=== PATIENT | female | born 1945 | race Caucasian/White ===

== ENCOUNTER → 2017-11-29 12:32 | Outpatient (CLI) | payer MEDICARE, MEDICAID, SELFPAY | PROVIDERS: Visit Provider Internal Medicine Adolescent Medicine | DX: R05 Cough (principal) | CPT/HCPCS: 87070; 87077; 87186; 87205 ==

== ENCOUNTER → 2018-08-15 09:24 | Outpatient (CLI) | payer MEDICARE, MEDICAID, SELFPAY ==
--- NOTE | 2018-08-15 09:48 | XR_ITS ---
XR DEXA axial skeleton HISTORY: ITS.REASON: POST MENOPAUSAL ORDERING PHYSICIAN: Jean Paul Abebe MD PATIENT AGE: 73 years COMPARISON: 02/17/2016 FINDINGS: The BMD measured at the Left femoral neck is 0.945 g/cm squared with a T score of -0.7. This is considered Normal according to the World Health Organization criteria. Fracture risk is Low. Treatment is advised. The L1 L4 density has a T score of 2.6 and has increased by 3.2%. The hip density has decreased by 8.3% IMPRESSION: Normal bone density with low fracture risk. Suggest follow-up exam August 2020
== END ==
PROVIDERS: PCP Internal Medicine Adolescent Medicine; Visit Provider Internal Medicine Adolescent Medicine
DX: Z13.820 Encounter for screening for osteoporosis (principal); Z78.0 Asymptomatic menopausal state
CPT/HCPCS: 77080

== ENCOUNTER → 2018-09-12 09:50 | Outpatient (CLI) | payer MEDICARE, MEDICAID, SELFPAY ==
--- NOTE | 2018-09-12 09:55 | MM_ITS ---
MM Dig screening mamm BI w/CAD CAD Screening COMPARISON: Digital mammograms with CAD 03/31/2015 INDICATION: There is no personal or family history of breast cancer. There has been previous biopsy right breast for benign disease. TECHNIQUE: Standard CC and MLO images were obtained. R2 CAD reviewed. FINDINGS: Scattered fibroglandular densities are seen in both breasts. There is a mole marker left breast. There are few benign-appearing microcalcifications right breast. There is a biopsy clip right breast. There is no suspicious lesion and there are no suspicious microcalcifications. IMPRESSION: Fibrofatty parenchyma with no suspicious lesion seen BI-RADS Category: 2 Benign Finding(s) RECOMMENDED FOLLOW-UP: 1YR - 1 YEAR FOLLOW-UP (A letter has been sent to the patient regarding results of the study.)
== END ==
PROVIDERS: PCP Internal Medicine Adolescent Medicine; Visit Provider Internal Medicine Adolescent Medicine
DX: Z12.31 Encounter for screening mammogram for malignant neoplasm of breast (principal)
CPT/HCPCS: 77067

== ENCOUNTER → 2019-04-17 08:59 | Outpatient (CLI) | payer MEDICARE, MEDICAID, SELFPAY ==
--- NOTE | 2019-04-17 09:04 | CA_ITS ---
APPROVED REPORT Flat Sorter Processor: Verónica George RVT Laterality: Bilateral Study Quality: Good Indications: LEFT SIDED FACIAL DROOPING/NUMBNESS, BELLS PALSY Risk Factors Hypertension: Doppler Spectral Velocity Analysis ECA (R) 77.80/8.30 cm/s ECA (L) 48.40/6.00 cm/s dICA (R) 53.10/16.70 cm/s dICA (L) 57.40/16.10 cm/s Yue (R) 66.00/20.50 cm/s Yue (L) 63.10/18.10 cm/s pICA (R) 40.30/9.40 cm/s pICA (L) 70.00/20.60 cm/s dCCA (R) 47.90/10.10 cm/s dCCA (L) 56.30/11.90 cm/s pCCA (R) 71.90/12.80 cm/s pCCA (L) 76.80/12.30 cm/s Vert (R) 29.30/6.90 cm/s Vert (L) 42.70/12.30 cm/s ICA/CCA 1.38 ICA/CCA 1.24 Conclusion Study suggests 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 Study suggests 20-49% stenosis of the left internal cartoid artery. Antegrade flow seen bilateral vertebral arteries. Solid 1cm nodule seen right thyroid. Electronically signed by : Julio Segovia MD 04/17/2019 16:41:42
--- NOTE | 2019-04-17 09:28 | MR_ITS ---
PROCEDURE: MR HEAD/BRAIN WO CON CLINICAL INDICATION: DYSARTHRIA, FACIAL PALSY Left-sided facial palsy COMPARISON: No exams were available for comparison TECHNIQUE: Routine multiplanar multi echo sequences are performed without gadolinium enhancement. FINDINGS: No midline shift, mass effect, intracranial hemorrhage, or hydrocephalus. The cerebellopontine angles, cerebellum, brainstem and mid brain have an unremarkable appearance. No evidence of acute infarction. Some nonspecific periventricular and subcortical T2 white matter hyperintensities which do not demonstrate restricted diffusion or enhancement. No enhancing lesions are evident. The hippocampal gyri are unremarkable and the temporal horns are symmetric. No intra-axial or extra-axial hemorrhage. The pituitary, optic chiasm, corpus callosum, and craniocervical junction have an unremarkable appearance. No mastoid effusion or sinus air-fluid level. IMPRESSION: No acute intracranial findings. Dictated by: Julio Segovia MD 04/18/2019 10:22 Electronically signed by Julio Segovia MD in [place] 04/18/2019 10:22
== END ==
PROVIDERS: PCP Internal Medicine Adolescent Medicine; Visit Provider Internal Medicine Adolescent Medicine
DX: R47.1 Dysarthria and anarthria (principal); G51.0 Bell's palsy
CPT/HCPCS: 70551; 93880

== ENCOUNTER → 2020-04-27 13:17 | Outpatient (POV) | payer MEDICARE, MEDICAID, SELFPAY | DX: Z00.00 Encounter for general adult medical examination without abnormal findings (principal) ==

== ENCOUNTER → 2020-04-27 15:27 | Outpatient (CLI) | payer MEDICARE, MEDICAID, SELFPAY ==
--- NOTE | 2020-04-27 15:34 | MM_ITS ---
PROCEDURE: MM DIG SCREENING MAMM BI W/CAD Digital Breast Tomosynthesis Included CLINICAL INDICATION: SCREENING There is no personal or family history of breast cancer. There has been a previous biopsy right breast for benign disease. COMPARISON: MG DMSB DIG MAMM-SCREEN CHILO from 03/31/2015 CR,MG BONE3 BONE DENSITOMETRY(HIP:LT SPINE from 02/17/2016 MG DIG MAMM-SCREEN CHILO from 09/12/2018 TECHNIQUE: Standard CC and MLO images and 3D Tomosynthesis was obtained. R2 CAD reviewed. FINDINGS: Mild fibroglandular densities are seen in the subareolar regions of both breast and the findings are fairly symmetrical and bilateral. There is a biopsy clip right breast. There are few scattered benign-appearing microcalcifications in the right breast. There is no suspicious lesion and no suspicious microcalcifications. IMPRESSION: Fibrofatty parenchyma with no suspicious lesions seen BI-RAD Category: 2 Benign Finding(s) FOLLOW-UP: 1YR 1 Year Follow-up (A letter has been sent to the patient regarding results of the study.) Dictated by: Dr. Tyler Houser MD 05/04/2020 12:57 Dr. Tyler Houser MD in [place] 05/04/2020 12:57
== END ==
PROVIDERS: PCP Internal Medicine Adolescent Medicine; Visit Provider Internal Medicine Adolescent Medicine
DX: Z12.31 Encounter for screening mammogram for malignant neoplasm of breast (principal)
CPT/HCPCS: 77063; 77067

== ENCOUNTER → 2020-09-23 12:38 | Outpatient (CLI) | payer MEDICARE, MEDICAID, SELFPAY ==
--- NOTE | 2020-09-23 13:37 | CT_ITS ---
PROCEDURE INFORMATION: Exam: CT Chest Without Contrast; Diagnostic Exam date and time: 09/23/2020 1:37 PM Age: 75 years old Clinical indication: Dyspnea; Patient HX: SOA, pulmonary fibrosis TECHNIQUE: Imaging protocol: Diagnostic computed tomography of the chest without contrast. Radiation optimization: All CT scans at this facility use at least one of these dose optimization techniques: automated exposure control; mA and/or kV adjustment per patient size (includes targeted exams where dose is matched to clinical indication); or iterative reconstruction. COMPARISON: CHESTWO CT chest wo con 11/26/2017 8:11 PM FINDINGS: Lungs: Bilateral mid and lower lung zone mild fibrosis, with mild peripheral honeycombing minimal associated bronchiectasis. Pleural spaces: Unremarkable. No pneumothorax. No pleural effusion. Heart: Moderate three-vessel coronary artery atherosclerotic disease. Aorta: No aortic aneurysm. Lymph nodes: Calcified left hilar and subcarinal lymph nodes, compatible with prior granulomatous disease. Spleen: Splenic calcifications, compatible with prior granulomatous disease. Splenic calcifications, compatible with prior granulomatous disease. Bones/joints: Multilevel thoracic spine degenerative disc space narrowing and osteophyte formation. Soft tissues: Normal. IMPRESSION: 1. Bilateral mid and lower lung zone mild fibrosis, with mild peripheral honeycombing minimal associated bronchiectasis. 2. No acute thoracic abnormality.
[2020-09-23 13:53] VITALS: PULSE 70; PULSE 74
== END ==
PROVIDERS: PCP Internal Medicine Adolescent Medicine; Visit Provider Internal Medicine Adolescent Medicine
DX: J84.10 Pulmonary fibrosis, unspecified (principal)
CPT/HCPCS: 71250; 94060; 94640; 94726; 94729

== ENCOUNTER → 2020-11-17 14:56 | Outpatient (CLI) | payer MEDICARE, MEDICAID, SELFPAY ==
[2020-11-17 15:34] LABS: Basophils # 0.4 K/mm3 (0-0.2); Eosinophils # 0.5 K/mm3 (0.0-0.4); Eosinophils % 3.2 % (0.1-12.0); Hematocrit 39.4 % (37.0-47.0); Hemoglobin 13.3 g/dL (12.2-16.2); Lymphocytes # 2.5 K/mm3 (0.7-4.5); Lymphocytes % 16.9 % (10-50); Mean Corpuscular HGB Conc 33.9 g/dL (31.8-35.4); Mean Corpuscular Hemoglobin 29.7 pg (27.0-31.2); Mean Corpuscular Volume 87.8 fl (81-99); Mean Platelet Volume 7.2 fl (7.4-10.4); Monocytes # 0.9 K/mm3 (0.1-1.0); Monocytes % 6.2 % (1.7-9.3); Neutrophils # 10.4 K/mm3 (1.8-7.8); Neutrophils % 70.7 % (37.0-80.0); Platelet Count 339 K/mm3 (142-424); Red Blood Count 4.49 M/mm3 (4.20-5.40); Red Cell Distribution Width 14.2 % (11.5-17.5); White Blood Count 14.7 K/mm3 (4.8-10.8)
[2020-11-17 16:26] LABS: C-Reactive Protein 0.8 mg/L (0-4)
[2020-11-21 23:07] LABS: Immunoglobulin E, Total 30 IU/mL (6-495); M003-IgE Aspergillus fumigatus <0.10 kU/L (Class 0)
== END ==
PROVIDERS: Visit Provider Internal Medicine Pulmonary Disease
DX: R06.00 Dyspnea, unspecified; R06.2 Wheezing
CPT/HCPCS: 36415; 82785; 85025; 86003; 86140

== ENCOUNTER → 2021-01-12 10:00 | Outpatient (CLI) | payer MEDICARE, MEDICAID, SELFPAY ==
[2021-01-12 10:44] LABS: Basophils # 0.6 K/mm3 (0-0.2); Basophils % 3.1 % (0.1-2.0); Eosinophils # 0.5 K/mm3 (0.0-0.4); Eosinophils % 2.6 % (0.1-12.0); Hematocrit 43.2 % (37.0-47.0); Hemoglobin 14.3 g/dL (12.2-16.2); Lymphocytes # 2.9 K/mm3 (0.7-4.5); Lymphocytes % 16.5 % (10-50); Mean Corpuscular HGB Conc 33.1 g/dL (31.8-35.4); Mean Corpuscular Hemoglobin 30.4 pg (27.0-31.2); Mean Platelet Volume 7.6 fl (7.4-10.4); Monocytes % 5.7 % (1.7-9.3); Neutrophils # 12.6 K/mm3 (1.8-7.8); Neutrophils % 72.1 % (37.0-80.0); Platelet Count 336 K/mm3 (142-424); Red Blood Count 4.69 M/mm3 (4.20-5.40); Red Cell Distribution Width 14.4 % (11.5-17.5); White Blood Count 17.5 K/mm3 (4.8-10.8)
[2021-01-12 10:46] LABS: MANUAL DIFFERENTIAL MANUAL DIFFERENTIAL (MANUAL DIFF)
[2021-01-12 11:18] LABS: Alanine Aminotransferase 15 U/L (12-78); Albumin Level 4.4 g/dl (3.5-5.0); Albumin/Globulin Ratio 1.6 (1.1-1.8); Alkaline Phosphatase 68 U/L (38-126); Anion Gap 10.7 mEq/L (5-15); Aspartate Amino Transferase 30 U/L (14-36); Bilirubin,Total 1.3 mg/dl (0.2-1.3); Blood Urea Nitrogen 11 mg/dl (7-17); Calcium 9.5 mg/dl (8.4-10.2); Carbon Dioxide 29 mmol/L (22.0-30.0); Chloride 98 mmol/L (98-107); Chol/HDL Ratio 3.4 (1-3.5); Cholesterol 181 mg/dl (140-200); Estimated Glomerular Filt Rate 82 ml/min (>60); GFR (African American) 99 ML/MIN (>60); Globulin 2.7 g/dL (1.3-3.2); Glucose 105 mg/dl (74-100); HDL Cholesterol 54 mg/dl (40-60); Potassium 4.7 mmoL/L (3.5-5.1); Sodium 133 mmol/L (136-145); Total Protein,Serum 7.1 g/dl (6.3-8.2); Triglycerides 154 mg/dl (30-150); VLDL Cholesterol 31 mg/dL (0-40)
[2021-01-12 11:25] LABS: Eosinophils % 3 % (0-3); Lymphocytes % 32 % (10-50); Monocytes % 4 % (2-9); Neutrophils % 57 % (42-76); Platelet Estimate Normal; RBC Morphology Normal; Total Cells Counted 100
[2021-01-12 11:29] LABS: Direct LDL Cholesterol 95.36 mg/dL (100-129)
[2021-01-12 11:34] LABS: 25-OH Vitamin D, Total 61.4 ng/mL (30-100)
[2021-01-12 11:43] LABS: Free Thyroxine Index 3.2 ug/dL (5.93-13.13); T4 (Thyroxine) 11.1 ug/dl (5.53-11.0); Triiodothryronine (T3) Uptake 29 % (23.5-40.5)
[2021-01-12 11:57] LABS: Thyroid Stimulating Hormone 2.71 uIU/mL (0.465-4.68)
[2021-01-12 12:08] LABS: Vitamin B12 870 pg/mL (239-931)
== END ==
PROVIDERS: Visit Provider Internal Medicine Adolescent Medicine
DX: E03.9 Hypothyroidism, unspecified (principal); E78.5 Hyperlipidemia, unspecified; E53.8 Deficiency of other specified B group vitamins; E55.9 Vitamin D deficiency, unspecified
CPT/HCPCS: 36415; 80053; 80061; 82306; 82607; 84436; 84443; 84479; 85007; 85025

== ENCOUNTER → 2021-03-28 07:05 | Outpatient (CLI) | payer MEDICARE, MEDICAID, SELFPAY ==
--- NOTE | 2021-03-28 07:43 | MR_ITS ---
PROCEDURE: MR HEAD/BRAIN WO CON CLINICAL INDICATION: ACUTE NONINTRACTABLE HEADACHE COMPARISON: MR MR HEAD/BRAIN WO CON from 04/17/2019 TECHNIQUE: Routine multiplanar multi echo sequences are performed without gadolinium enhancement. FINDINGS: No midline shift, mass effect, intracranial hemorrhage, or hydrocephalus. The cerebellopontine angle, midbrain, and brainstem have an unremarkable appearance. A small cystic areas noted in the left cerebellar hemisphere at 4 mm. Could be due to an old small area infarction and has developed since 04/17/2019. This does not demonstrate restricted diffusion and is hypointense on T1 and hyperintense on T2 without surrounding edema. Scattered periventricular and subcortical T2 white matter hyperintensities are noted not significantly changed. There is mild generalized atrophy. Nonspecific dilated perivascular spaces are present within the basal ganglia. The pituitary, optic chiasm, corpus callosum, and craniocervical junction have an unremarkable appearance. No mastoid effusion or sinus air-fluid level. IMPRESSION: No acute intracranial findings. Mild atrophy with minimal periventricular ischemic gliotic changes New 4 mm area of decreased T1 and increased T2 signal in the left cerebellar hemisphere to a which may be due to an old small area of infarction which has developed since the previous exam but does not appear acute. Dictated by: Julio Segovia MD 03/29/2021 07:56 Julio Segovia MD in [place] 03/29/2021 07:56
== END ==
PROVIDERS: PCP Internal Medicine Adolescent Medicine; Visit Provider Internal Medicine Adolescent Medicine
DX: R51.9 Headache, unspecified (principal)
CPT/HCPCS: 70551

== ENCOUNTER 2021-12-24 18:09 | Inpatient (IN) | payer MEDICARE, MEDICAID, SELFPAY ==
[2021-12-24] VITALS (16 sets, daily range): BP systolic 84–182; BP diastolic 51–89; PULSE 104–130; RESP 18–33; TEMP 39.6–40.4; O2SAT 88–97; BMI 27.3; BMI 31.3
--- NOTE | 2021-12-24 18:10 | XR_ITS ---
PROCEDURE INFORMATION: Exam: XR Chest Exam date and time: 12/24/2021 6:28 PM Age: 76 years old Clinical indication: Fever and other: AMS; Additional info: Fever, AMS TECHNIQUE: Imaging protocol: Radiologic exam of the chest. Views: 1 view. COMPARISON: CT CHEST WO CON 09/23/2020 1:43 PM FINDINGS: Lungs: Bilateral chronic lung fibrosis. No superimposed acute airspace process. Pleural spaces: Unremarkable. No pleural effusion. No pneumothorax. Heart/Mediastinum: Unremarkable. No cardiomegaly. Bones/joints: Unremarkable. IMPRESSION: Chronic lung fibrosis.
--- NOTE | 2021-12-24 18:10 | ECG_ITS ---
APPROVED REPORT Exam: Resting ECG HR:117 bpm ECG Measurements Heart Rate 117 AXES RI 121 P 68 QRSd 96 QRS 79 QT 340 T 96 QTc 410 Conclusion SINUS TACHYCARDIA INCOMPLETE RIGHT BUNDLE BRANCH BLOCK [90+ ms QRS DURATION, TERMINAL R IN V1/V2, 40+ ms S IN I/aVL/V4/V5/V6] NONSPECIFIC ST & T-WAVE ABNORMALITY ABNORMAL RHYTHM ECG UNCONFIRMED REPORT Electronically signed by : Jean Paul Abebe MD 12/25/2021 22:37:22
--- NOTE | 2021-12-24 18:10 | CT_ITS ---
PROCEDURE INFORMATION: Exam: CT Head Without Contrast Exam date and time: 12/24/2021 6:21 PM Age: 76 years old Clinical indication: Altered mental status/memory loss and fever; Confusion or disorientation; Additional info: AMS fever TECHNIQUE: Imaging protocol: Computed tomography of the head without contrast. Radiation optimization: All CT scans at this facility use at least one of these dose optimization techniques: automated exposure control; mA and/or kV adjustment per patient size (includes targeted exams where dose is matched to clinical indication); or iterative reconstruction. COMPARISON: MR HEAD/BRAIN WO CON 03/28/2021 7:53 AM FINDINGS: Brain: There is age-appropriate cerebral atrophy. Moderate changes of chronic small vessel ischemia within the cerebral white matter regions bilaterally. No acute infarct or hemorrhage. Cerebral ventricles: No ventriculomegaly. Paranasal sinuses: Visualized sinuses are unremarkable. No fluid levels. Mastoid air cells: Visualized mastoid air cells are well aerated. Bones/joints: Unremarkable. No acute fracture. Soft tissues: Unremarkable. IMPRESSION: No acute intracranial abnormality.
--- NOTE | 2021-12-24 18:17 | HMH.EDGENADL ---
Discharge Plan Disposition Patient Disposition: Xfer Other Condition: Serious Clinical Impressions Clinical Impression: Leukemia, Severe sepsis with acute organ dysfunction, Urinary tract infection, Kidney stone Discharge ED Provider: Pauly Parekh Adult HPI General Chief complaint: Altered Mental Status Stated complaint: AMS Time Seen by Provider: 12/24/21 18:10 Mode of Arrival: EMS Source of Information: EMS Limitations: No Limitations History of Present Illness HPI narrative: 76-year-old female presenting to the emergency department with altered mental status, fever. EMS was called by patient's daughter. She went over to visit her and noted she was quite confused. She was sitting on the couch, wearing normal clothes. She seemed somewhat unresponsive. Breathing fast. When EMS arrived she was confused, febrile. She was able to stand and walk to their stretcher. No known recent illness. On arrival, she is unable to answer questions appropriately. Related Data Home Medications Medication Instructions Recorded Confirmed aspirin 81 mg tablet,delayed 81 mg PO DAILY Supplement 11/26/17 12/24/21 release biotin 1,000 mcg chewable tablet 1,000 mcg PO DAILY Supplement 11/26/17 12/24/21 bisoprolol fumarate 5 mg tablet 5 mg PO DAILY Supplement 11/26/17 12/24/21 cyanocobalamin (vitamin B-12) 5,000 mcg PO DAILY Supplement 11/26/17 12/24/21 5,000 mcg disintegrating tablet levothyroxine 50 mcg tablet 50 mcg PO DAILY Supplement 11/26/17 12/24/21 meloxicam 15 mg tablet 15 mg PO DAILY Pain 11/26/17 12/24/21 nitrofurantoin 100 mg PO DAILY Infection 11/26/17 12/24/21 monohydrate/macrocrystals 100 mg capsule omeprazole 20 mg capsule,delayed 20 mg PO DAILY GERD 11/26/17 12/24/21 release rosuvastatin 20 mg tablet 20 mg PO DAILY Supplement 11/26/17 12/24/21 sennosides 8.6 mg-docusate sodium 1 each PO DAILY Supplement 11/26/17 12/24/21 50 mg tablet gabapentin 300 mg capsule 300 mg PO DAILY Pain 11/17/20 12/24/21 fluticasone 113 mcg-salmeterol 14 1 inh inhalation BID SOA 12/24/21 12/24/21 mcg/actuation breath activated powdr Previous Rx's Medication Instructions Recorded albuterol sulfate 90 mcg/actuation 1 inh inhalation Q6H PRN shortness 01/19/21 aerosol inhaler of breath or wheezing 90 days #8.5 grams Allergies Allergy/AdvReac Type Severity Reaction Status Date / Time ADHESIVES Allergy Intermediate I-RASH Uncoded 01/19/21 13:26 (BANDAIDS) PFSH PFSH Social History Smoking Status: Never smoker alcohol intake: never substance use type: denies use current occupational status: retired Travel in the last 8 weeks: None ROS Obtained: Yes unobtainable due to mental status Physical Exam General General appearance: alert and in no apparent distress Head Head exam: atraumatic and normocephalic Eye Eye exam: Present normal appearance; Absent conjunctival redness ENT ENT exam: Present normal exam Neck Neck exam: Present normal inspection; Absent meningismus Respiratory Respiratory exam: Present normal lung sounds bilaterally and other (Elevated respiratory rate); Absent wheezes or stridor Cardiovascular Cardiovascular exam: Present normal rhythm and tachycardia Abdominal Exam Abdominal exam: Present soft; Absent distention or tenderness Extremities Exam Extremities exam: Present normal inspection and full ROM; Absent tenderness or edema Neurological Exam Neurological exam: Present alert and other (Moving all 4 extremities spontaneously.); Absent oriented X3 (Not speaking in words.) Psychiatric Psychiatric exam: Present normal affect and normal mood Skin Skin exam: Present warm, pallor and other (Hot to the touch) Medical Decision Making Medical Records Medical records reviewed: Yes I reviewed the patient's medical records. Jony Inquiry Pt receiving controlled substance: No Vital Signs: 12/24/21 18:10 12/24/21 19:17 12/24/21 19:00 Temperature 104.7 F H 10
--- NOTE | 2021-12-24 18:22 | PC.NURSE ---
RESPIRATORY CONTACTED ABOUT [facility]
[2021-12-24 18:25] LABS: Microscopic, Urine URINE MICROSCOPIC (MICROSCOPIC)
--- NOTE | 2021-12-24 18:26 | PC.NURSE ---
Pt to RAD for SCANS
[2021-12-24 18:27] LABS: Appearance,Urine SL CLOUDY (Clear); Bilirubin,Urine Negative (Negative); Blood, Urine 2+ (Negative); Color,Urine YELLOW (Yellow); Glucose,Urine (UA) Negative (Negative); Ketones,Urine Negative (Negative); Leukocyte Esterase,Urine 2+ (Negative); Nitrate,Urine POSITIVE (Negative); Protein,Urine TRACE (Negative); Urobilinogen,Urine 0.2 EU/dl (0.2)
[2021-12-24 18:27] LABS: Coronavirus 19, PCR Not Detected (NotDetected); Influenza A, PCR Not Detected (NotDetected); Influenza B, PCR Not Detected (NotDetected)
--- NOTE | 2021-12-24 18:29 | PC.NURSE ---
family present to the bedside
[2021-12-24 18:32] LABS: Chloride 103 mmol/L (98-107)
[2021-12-24 18:33] LABS: Potassium 3.4 mmoL/L (3.5-5.1); Sodium 137 mmol/L (136-145)
--- NOTE | 2021-12-24 18:34 | PC.NURSE ---
this nurse to the bedside to speak with family about POC
[2021-12-24 18:35] LABS: Alanine Aminotransferase 22 U/L (12-78); Albumin Level 4.2 g/dl (3.5-5.0); Alkaline Phosphatase 179 U/L (38-126); Aspartate Amino Transferase 55 U/L (14-36); Bilirubin,Total 1.4 mg/dl (0.2-1.3); Blood Urea Nitrogen 22 mg/dl (7-17); Creatinine Clearance Estimated 27 mL/min (50-200); Estimated Glomerular Filt Rate 19 ml/min (>60); GFR (African American) 23 ML/MIN (>60); Lipase 92 U/L (23-300)
[2021-12-24 18:36] LABS: Albumin/Globulin Ratio 1.2 (1.1-1.8); Anion Gap 18.4 mEq/L (5-15); Calcium 8.4 mg/dl (8.4-10.2); Carbon Dioxide 19 mmol/L (22.0-30.0); Globulin 3.4 g/dL (1.3-3.2); Glucose 97 mg/dl (74-100); Total Protein,Serum 7.6 g/dl (6.3-8.2)
[2021-12-24 18:42] LABS: VBG Base Excess -11.6 mmol/L (-2.4-2.3); VBG Oxygen Saturation 64.8 % (50-70); VBG PCO2 47.9 mmol/L (35-51); VBG Total CO2 18.5 mmol/L (23-27)
[2021-12-24 18:44] LABS: VBG PH 7.17 mmol/L (7.31-7.41)
[2021-12-24 18:48] LABS: Lactic Acid 3.1 mmol/L (0.7-2.1)
[2021-12-24 18:49] LABS: Troponin I < 0.01 ng/ml (0.00-0.034)
[2021-12-24 18:51] LABS: Bacteria,Urine 4+ /lpf; RBC,Urine 20-50 #/hpf (0-3); Uric Acid Crystals,Urine 4+ /lpf; WBC,Urine 20-50 #/hpf (0-3)
--- NOTE | 2021-12-24 19:03 | CT_ITS ---
PROCEDURE INFORMATION: Exam: CT Abdomen And Pelvis Without Contrast Exam date and time: 12/24/2021 7:09 PM Age: 76 years old Clinical indication: Fever; Additional info: Sepsis, katie, UTI TECHNIQUE: Imaging protocol: Computed tomography of the abdomen and pelvis without contrast. Radiation optimization: All CT scans at this facility use at least one of these dose optimization techniques: automated exposure control; mA and/or kV adjustment per patient size (includes targeted exams where dose is matched to clinical indication); or iterative reconstruction. COMPARISON: CT CHEST WO CON 09/23/2020 1:43 PM FINDINGS: Lungs: Chronic bibasilar lung fibrosis. Liver: Normal. No mass. Gallbladder and bile ducts: Normal. No calcified stones. No ductal dilation. Pancreas: Normal. No ductal dilation. Spleen: Spleen is enlarged measuring 16.5 cm in longitudinal length. No splenic mass. Adrenal glands: Normal. No mass. Kidneys and ureters: 6.5 mm obstructing stone in the proximal left ureter on image 59, series 3. Moderate left-sided hydroureteronephrosis. Additional left-sided renal stones. 2.4 cm simple left renal cyst. Stomach and bowel: Unremarkable. No obstruction. No mucosal thickening. Appendix: No evidence of appendicitis. Intraperitoneal space: Unremarkable. No free air. No significant fluid collection. Vasculature: Moderate atherosclerotic changes are seen within the abdominal aorta and branch vasculature without evidence of aneurysm. Lymph nodes: Unremarkable. No enlarged lymph nodes. Urinary bladder: Jolley catheter within the urinary bladder. Reproductive: Calcified uterine fibroid. Bones/joints: Unremarkable. No acute fracture. Soft tissues: Unremarkable. IMPRESSION: 1. 6.5 cm obstructing stone in the proximal left ureter. 2. Left-sided nephrolithiasis. 3. Simple right renal cyst. No follow-up imaging is recommended. 4. Splenomegaly. 5. Incidental/nonacute findings as described. COMMENTS: Consistent with the [employer]'s Incidental Findings Committee white paper (J Am Adelita Radiol 2018): Any incidental renal lesion less than 1 cm or classified as too small to characterize, or any incidental cystic renal lesion characterized as simple-appearing, is likely benign. No follow-up imaging is recommended for these lesions per consensus recommendations based on imaging criteria.
[2021-12-24 19:07] LABS: Thyroid Stimulating Hormone 1.47 uIU/mL (0.465-4.68)
[2021-12-24 19:17] LABS: Procalcitonin 1.42 ng/mL (0.0-2.0)
[2021-12-24 19:18] LABS: Mean Platelet Volume 9.2 fl (7.4-10.4)
[2021-12-24 19:21] LABS: Basophils % 10.7 % (0.1-2.0); Eosinophils # 5.2 K/mm3 (0.0-0.4); Eosinophils % 1.8 % (0.1-12.0); Hemoglobin 9.1 g/dL (12.2-16.2); Lymphocytes # 8.8 K/mm3 (0.7-4.5); Mean Corpuscular HGB Conc 31.4 g/dL (31.8-35.4); Mean Corpuscular Hemoglobin 30.6 pg (27.0-31.2); Mean Corpuscular Volume 97.6 fl (81-99); Monocytes # 2.8 K/mm3 (0.1-1.0); Neutrophils # 273.8 K/mm3 (1.8-7.8); Neutrophils % 94.2 % (37.0-80.0); Platelet Count 379 K/mm3 (142-424); Red Blood Count 2.98 M/mm3 (4.20-5.40); Red Cell Distribution Width 17.9 % (11.5-17.5)
[2021-12-24 19:27] LABS: Hematocrit 29.1 % (37.0-47.0)
--- NOTE | 2021-12-24 19:35 | PC.NURSE ---
Dr. Andrae nolen
--- NOTE | 2021-12-24 19:37 | PC.NURSE ---
speaking with Dr. Abebe
--- NOTE | 2021-12-24 19:42 | PC.NURSE ---
division supervisor notified of pt admission and need for bed assignment
[2021-12-24 19:51] LABS: White Blood Count 290.6 K/mm3 (4.8-10.8)
--- NOTE | 2021-12-24 19:52 | PC.NURSE ---
Dr. Parekh notified of critical WBC
[2021-12-24 19:53] LABS: MANUAL DIFFERENTIAL MANUAL DIFFERENTIAL (MANUAL DIFF)
[2021-12-24 19:54] LABS: Anisocytosis 1+; Eosinophils % 6 % (0-3); Hypochromasia 1+; Lymphocytes % 2 % (10-50); Monocytes % 2 % (2-9); Neutrophils % 55 % (42-76); Platelet Estimate Normal; Total Cells Counted 100
[2021-12-24 19:56] LABS: Nucleated Red Blood Cells 4
--- NOTE | 2021-12-24 20:04 | PC.NURSE ---
Dr. Abebe paged back
--- NOTE | 2021-12-24 20:06 | PC.NURSE ---
speaking with Dr. Abebe at this time
--- NOTE | 2021-12-24 20:09 | PC.NURSE ---
at speaking with family about pt results
--- NOTE | 2021-12-24 20:15 | PC.NURSE ---
Spoke with Mayelin at [facility]. She advised that she would page Dr. Yanira Moreno and return our call.
[2021-12-24 20:22] LABS: Lactate Dehydrogenase 965 U/L (313-618); Uric Acid 13.2 mg/dl (2.5-6.2)
[2021-12-24 20:26] LABS: C-Reactive Protein 24.2 mg/L (0-4)
[2021-12-24 20:33] LABS: Erythrocyte Sedimentation Rate 5 mm/hr (0-30)
[2021-12-24 20:40] LABS: Troponin I < 0.01 ng/ml (0.00-0.034)
--- NOTE | 2021-12-24 20:40 | PC.NURSE ---
spoke with Dr. Moreno at [facility]. They advised to contact .
--- NOTE | 2021-12-24 20:44 | PC.NURSE ---
speaking with oncology at
--- NOTE | 2021-12-24 20:48 | PC.NURSE ---
Pt placed on wait list at per Dr. Fairchild
--- NOTE | 2021-12-24 20:51 | PC.NURSE ---
Dr. Andrae nolen
[2021-12-24 20:54] LABS: Activated Partial Thrombo Time 28.5 seconds (22.8-30.6); Fibrinogen 417 mg/dL (229.9-363.5); INR 1.13 (0.9-1.1); Prothrombin Time 12.1 seconds (10.1-12.5)
[2021-12-24 20:57] LABS: D-Dimer > 8.10 ug/mL (0.0-0.5)
--- NOTE | 2021-12-24 21:08 | PC.NURSE ---
Patient repositioned in bed. Rectal temp 104.4. notified. No orders for ibuprofen due to pt kidney values. Ice packs applied to patients bilateral arm pits and groin.
[2021-12-24 22:22] LABS: Reflex Lactic Add Lactic Reflex
[2021-12-24 22:55] LABS: Lactic Acid Follow Up (RFLX 1) 7.8 mmol/L (0.7-2.1)
--- NOTE | 2021-12-24 23:01 | XR_ITS ---
PROCEDURE INFORMATION: Exam: XR Chest Exam date and time: 12/24/2021 11:12 PM Age: 76 years old Clinical indication: Device placement; Ett placement (vent status) TECHNIQUE: Imaging protocol: Radiologic exam of the chest. Views: 1 view. COMPARISON: CR XR CHEST PORTABLE 12/24/2021 6:28 PM FINDINGS: Tubes, catheters and devices: Endotracheal tube 5 cm above the manfred. Lungs: Diffuse bilateral lung opacities are grossly unchanged. Pleural spaces: Minor left-sided pleural fluid. Heart/Mediastinum: Unremarkable. No cardiomegaly. Bones/joints: Unremarkable. IMPRESSION: Endotracheal tube located 5 cm above the manfred.
[2021-12-24 23:10] LABS: Basophils # 58.3 K/mm3 (0-0.2); Eosinophils % 2.3 % (0.1-12.0); Lymphocytes # 13.9 K/mm3 (0.7-4.5); Lymphocytes % 3.6 % (10-50); Mean Corpuscular HGB Conc 31.1 g/dL (31.8-35.4); Mean Corpuscular Volume 102.9 fl (81-99); Mean Platelet Volume 10.3 fl (7.4-10.4); Monocytes # 5.2 K/mm3 (0.1-1.0); Monocytes % 1.3 % (1.7-9.3); Neutrophils # 361.2 K/mm3 (1.8-7.8); Neutrophils % 92.8 % (37.0-80.0); Platelet Count 190 K/mm3 (142-424); Red Blood Count 2.21 M/mm3 (4.20-5.40); Red Cell Distribution Width 18.7 % (11.5-17.5)
[2021-12-24 23:11] LABS: ABG Base Excess -23.2 mmol/L (-2.4-2.3); ABG HCO3 9.5 mmhg (22.0-26.0); ABG Oxygen Saturation 95 % (90-100); ABG PCO2 47.7 mmhg (35.0-45.0); ABG PO2 117.9 mmhg (80-100); ABG TCO2 10.9 mmhg (23-27)
[2021-12-24 23:13] LABS: Hematocrit 22.7 % (37.0-47.0); Hemoglobin 7.1 g/dL (12.2-16.2); White Blood Count 389.2 K/mm3 (4.8-10.8)
--- NOTE | 2021-12-24 23:17 | XR_ITS ---
PROCEDURE INFORMATION: Exam: XR Chest Exam date and time: 12/24/2021 11:29 PM Age: 76 years old Clinical indication: Device placement; Ng tube; Additional info: Ng tube placement TECHNIQUE: Imaging protocol: Radiologic exam of the chest. Views: 1 view. COMPARISON: CR XR CHEST PORTABLE 12/24/2021 11:12 PM FINDINGS: Tubes, catheters and devices: Endotracheal tube unchanged in position. NG tube in satisfactory position within the stomach. Lungs: Bilateral lung opacities are unchanged. Pleural spaces: Small left-sided pleural effusion. Heart/Mediastinum: Unremarkable. No cardiomegaly. Bones/joints: Unremarkable. IMPRESSION: NG tube in satisfactory position.
[2021-12-24 23:23] LABS: Oxygen 100 %
[2021-12-24 23:24] LABS: ABG PH 6.92 mmol/L (7.35-7.45); Allen's Test Y
[2021-12-24 23:26] LABS: Alanine Aminotransferase 125 U/L (12-78); Albumin Level 2.7 g/dl (3.5-5.0); Albumin/Globulin Ratio 1.1 (1.1-1.8); Alkaline Phosphatase 236 U/L (38-126); Anion Gap 22.1 mEq/L (5-15); Aspartate Amino Transferase 231 U/L (14-36); Bilirubin,Total 0.6 mg/dl (0.2-1.3); Blood Urea Nitrogen 22 mg/dl (7-17); Calcium 7.6 mg/dl (8.4-10.2); Chloride 106 mmol/L (98-107); Creatinine Clearance Estimated 24 mL/min (50-200); Estimated Glomerular Filt Rate 16 ml/min (>60); GFR (African American) 20 ML/MIN (>60); Globulin 2.5 g/dL (1.3-3.2); Glucose 391 mg/dl (74-100); Potassium 4.1 mmoL/L (3.5-5.1); Sodium 134 mmol/L (136-145); Total Protein,Serum 5.2 g/dl (6.3-8.2)
--- NOTE | 2021-12-24 23:33 | PC.NURSE ---
Dr. Fairchild at declined pt at this time. [facility] has no ICU beds available. Waiting for call back from [facility]
[2021-12-24 23:35] LABS: Magnesium 1.3 mg/dl (1.6-2.3)
[2021-12-24 23:38] LABS: Troponin I 0.15 ng/ml (0.00-0.034)
[2021-12-24 23:41] LABS: Carbon Dioxide 10 mmol/L (22.0-30.0)
[2021-12-24 23:42] LABS: POC Glucose,Bedside 173 (70-110)
--- NOTE | 2021-12-24 23:50 | PC.NURSE ---
Spoke with Caitlin at transfer center, she advised that the ICU medical attending advised that they did not believe it was safe for this pt to make a long transport and wanted us to look for somewhere closer. No flights are being accepted at this time. Pt continues to remain on wait list at .
[2021-12-24 23:52] LABS: ABG Base Excess -25.6 mmol/L (-2.4-2.3); ABG HCO3 7.1 mmhg (22.0-26.0); ABG Oxygen Saturation 96 % (90-100); ABG PCO2 35.9 mmhg (35.0-45.0); ABG PO2 116.9 mmhg (80-100); ABG TCO2 8.2 mmhg (23-27); Allen's Test Y; Oxygen 70 %; PEEP 5; Tidal Volume 430; Vent Rate 20
[2021-12-24 23:53] LABS: ABG PH 6.91 mmol/L (7.35-7.45); Source Right Radial
[2021-12-25] VITALS (10 sets, daily range): BP systolic 0–85; BP diastolic 0–56; PULSE 0–109; RESP 0–21; TEMP -17.7–37.7; O2SAT 0–97
--- NOTE | 2021-12-25 | ECG_ITS ---
APPROVED REPORT Exam: Resting ECG HR:131 bpm ECG Measurements Heart Rate 131 AXES WI 125 P 76 QRSd 132 QRS 97 QT 346 T 39 QTc 423 Conclusion ELECTRONIC VENTRICULAR PACEMAKER ABNORMAL RHYTHM ECG UNCONFIRMED REPORT Electronically signed by : Jean Paul Abebe MD 12/25/2021 22:36:13
--- NOTE | 2021-12-25 00:13 | PC.NURSE ---
Dr. Andrae nolen
--- NOTE | 2021-12-25 00:15 | PC.NURSE ---
speaking with Dr. Abebe
[2021-12-25 00:37] LABS: Reflex Lactic (2 hrs) Add Lactic Reflex
--- NOTE | 2021-12-25 00:43 | PC.NURSE ---
at speaking with pt family about POC
--- NOTE | 2021-12-25 00:55 | PC.NURSE ---
Pt's POA is her sister Daina Juárez. S/w siter and pt's son and they do not want further life saving care such as CPR, bag mouth ventilation, ACLS drugs, or defibrillation. Levophed is maxed @ 20mcg/min. Family do not want further medications to assist BP or HR. Other family in route to ER. DNR form signed at this time.
--- NOTE | 2021-12-25 01:34 | PC.NURSE ---
Spoke with Group Sales Representative Zane Jones. Advised to call back with patients preferred home. Patient is deemed not a siphoner's case due to the cause of .
[2021-12-25 01:43] LABS: Lactic Acid Follow up (RFLX 2) 11.9 mmol/L (0.7-2.1)
--- NOTE | 2021-12-25 01:49 | PC.NURSE ---
PT RULED OUT BY RYAN FONTAINE .
--- NOTE | 2021-12-25 03:34 | PC.NURSE ---
Family leaving to go home, gave them copies of her Hospital bracelet and copies of when she passed and no heart rhythm per their request. Obtained copies of pt's wishes and receipts from [facility] that pt's son had with him in case home would need.
--- NOTE | 2021-12-25 05:02 | PC.NURSE ---
Late Entry for CODE flow: @2249- HR noted to have decreased from 110s-120s to 50-60s. Also noted very shallow apneic breathing. @2252- Called Code blue- no pulse palpable to femoral or carotids, HR 40 on monitor, sat 60s and RR 6. CPR started. @2253- Blue lips noted, BP 133/109. RR 4 and very shallow, bag-valve mask O2 @ 100% began. Rectal temp 99.8. @2255- Epi 1mg administered. HR palpable per MD and ordered to stop compressions. HR 130-150. MD attempting intubation. @2257- 7.[address] Gallagher to 25cm @ teeth. Color change noted with CO2 detector. Equal chest rise. Called Radiology for portable CXR. @2258- Dr. Gallagher obtained ABG from L femoral artery. bedside FS LO at this time. D50 administered. @2299- Dr Gallagher obtained blood work for labs from L femoral vein, new order: CBC, CMP, Troponin. @2300- HR 140-166 irregular, 91% via AMBUbag-tube, BP 171/99. Ordered EKG. @2302- Portable CXR obtained- MD reviewed @ bedside tube looks in good position . EKG read is Electronic Ventricular Pacemaker with HR 131. MD reviewed at bedside. @2308- Bedside FS 48, ordered @2309- BP171/90, HR 128, RR 20 via ambu bag-tube, sat 98%. 2nd dose of D50 administered. Attempting NGT @2312- NGT 16fr placed to left nare @ 70cm. Auscultation heard. Called radiology for confirmation xray. reviewed ABG results (hand-delivered by RT) and reported metabolic acidosis give 1 amp Sodium bicarb . Gave MD critical results of WBC, CO2, and re-peat lactic. @2313- Bicarb infused. reviewed cxr to confirm NGT placement- reported it looks curled up pull it back a little . Pulled back to 60cm, repeated CXR and MD stated that looks good . @2316- recheck bedside FS- 173. @2319- RT changed pt to ventilator from ambu-bag. BP 106/61, HR125, 97% sat, RR 20. MD notified on trend down on BP. @2329- BP 96/59, MD notified and ordered Levophed for pressor support and fentanyl gtt for sedation. @2333- Called [facility] and s/w Naye for dosing of levophed and fentanyl. @2345- started Levophed @ 8mcg/min to RAC PIV. BP 94/59, HR 119, sat 96% on vent, RR20 @2348- started Fentanyl @ 10mcg/hr to LAC PIV. BP 84/56, HR 115. Increased Levophend to 10mcg/min. @0000- increased levophed to 12mcg/min d/t BP 87/51, HR 110, sat 96% on vent. @0010- increased levophed t0 14mcg/min d/t BP 83/53. MD at bedside s/w family. They are calling other family in. @0020- increased levophed to 16mcg/min d/t BP 80/55. Titrated fentanyl down to 0.5mcg/hr. @0030- increased Levophed to 18mcg/min d/t BP 85/56. MD aware almost maxed on Levophed. Family do not want further resuscitative or life saving measures. @0050- increased levophed to 20mcg/min d/t BP 77/48. This RN reviewing with pt's POA- sister and son. Will H, RT obtaining ABG. MD ordered Bicarb gtt. Called [facility] and s/w Naye to dose it and began at this time. @0055- sister signed DNR: no CPR or ACLS medications. s/w family regarding this. @0100- HR 47, BP 69/45, sat 75% on 100% vent. stopped fentanyl gtt. @0115- HR 71, BP 60/35, sat unobtainable. More family have arrived to bedside. Offered snacks, drinks, gave more chairs. @0125- HR0, asystole on monitor, All family able to come are at bedside, extras tissues offered. @0127- MD at bedside and called TOD. Stopped levophed and bicarb gtt's. Turned off ventilator per MD. @0135- Called [facility] and Akira Jones released body for autopsy, family do not want it. @0141- Called [facility], s/w Mo Parks and was released from [facility] consideration. . @0150- s/w family asked if they were ok for staff to completed post-mortem care, they agreed. @0200- family let back into to room. Sister states they are ready for home to come, they would like to use [facility] in [facility]. @0202- Called [facility] and gave information. @0315- Family are ready to leave. Gave end cardiac strip and copies of arm band per family request. @0420- home left with pt.
[2021-12-26 20:57] LABS: Peripheral Smear Review Scanned Result
--- NOTE | 2022-01-17 14:05 | EXP.DEATH.DS ---
Discharge Sum: Prov Provider Primary care physician: Jean Paul Abebe MD Visit Care Team Role Provider Type Denny Gallagher MD Emergency Provider Staff Physician Jean Paul Abebe MD Admit Provider Staff Physician Attending Provider Primary Care Provider Discharge Sum: Summary Date and Time Date of admission: 12/24/21 19:47 Date of : 01/24/22 Time of : 01:27 Hospital Course prior to Hospital Course Information: 76-year-old female who according to her family members had not been feeling well for 3 to 4 months, came to the emergency department with fever, chills and mental status changes. The interested reader is referred to the ER presentation note for details, but briefly patient presented as sepsis. Low blood pressure, febrile and high heart rate. Urinary studies showed positive leukocytes and nitrates. Plans were made for admission to the hospital, but CBC then returned showing white blood cell counts greater than 300,000. 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 Initially the family wished to tertiary care referral, but no beds were available in [facility] or [place] at the time. The patient was given IV fluids, aggressive IV antibiotics. Unfortunately, she decompensated very quickly, requiring intubation and pressors in the ER. Family reconvened, and given the gravity of her situation, the likelihood of her not surviving exchange transfusions, etc., they recommended no further escalation in care. in the ER from her acute leukemia with blast crisis on the date and time noted above. Summary Details: Notes above Additional Data Confirmation of as documented by pronouncing clinician: no pulse and no respirations Family: at bedside Attending/PCP notified?: Yes Attending physician: Jean Paul Abebe MD Was code activated?: No Autopsy requested?: No latent fingerprint examiner notified?: Yes Organ bank notified?: Yes Advance directives: Yes Hospice patient?: No
== END 2021-12-25 04:21 | disposition expired | DRG 840 ==
LOC: ER 19:42 → 2ND 21:01
PROVIDERS: Emergency Medicine; Admitting Provider Internal Medicine Adolescent Medicine; Emergency Provider Emergency Medicine; PCP Internal Medicine Adolescent Medicine; Visit Provider Internal Medicine Adolescent Medicine
DX: C95.90 Leukemia, unspecified not having achieved remission (principal); A41.9 Sepsis, unspecified organism; R65.21 Severe sepsis with septic shock; N39.0 Urinary tract infection, site not specified; R09.2 Respiratory arrest; I10 Essential (primary) hypertension; E78.5 Hyperlipidemia, unspecified; E03.9 Hypothyroidism, unspecified
CPT/HCPCS: 31500; 94002; 70450; 71045; 74176; 80053; 81001; 82803; 82962; 83605; 83615; 83690; 83735; 84145; 84443; 84484; 84550; 85007; 85025; 85378; 85384; 85610; 85651; 85730; 86140; 87040; 87077; 87086; 87088; 87186; 92950; 93005; 93041; 99291; C9803; J0696; U0003; U0005